=== PATIENT | female | born 1955 | race Two or more races ===

== ENCOUNTER → 2024-06-13 | Outpatient (BNVA) | payer OTHER, MEDICAID, SELFPAY | END | disposition home or self-care (01) | PROVIDERS: PCP Nurse Practitioner Family; Referring Provider Nurse Practitioner Family; Visit Provider Nurse Practitioner Family | DX: Z71.2 Person consulting for explanation of examination or test findings (principal); E78.5 Hyperlipidemia, unspecified; K76.0 Fatty (change of) liver, not elsewhere classified; E55.9 Vitamin D deficiency, unspecified; R73.03 Prediabetes | CPT/HCPCS: 99213 ==

== ENCOUNTER → 2024-09-27 | Outpatient (BNVA) | payer OTHER, MEDICAID, SELFPAY | END | disposition home or self-care (01) | PROVIDERS: PCP Nurse Practitioner Family; Referring Provider Nurse Practitioner Family; Visit Provider Nurse Practitioner Family | DX: Z71.2 Person consulting for explanation of examination or test findings (principal); K76.0 Fatty (change of) liver, not elsewhere classified; R73.03 Prediabetes; K64.9 Unspecified hemorrhoids; Z71.85 Encounter for immunization safety counseling; M79.18 Myalgia, other site; E55.9 Vitamin D deficiency, unspecified | CPT/HCPCS: 90471; 90677; 99214; G0009 ==